=== PATIENT | female | born 1955 | race Caucasian/White ===

== ENCOUNTER → 2016-07-29 | Outpatient (CLI) | payer MEDICAID ==
--- NOTE | 2016-07-29 15:31 | US ---
EXAMINATION TYPE: US transvaginal DATE OF EXAM: 07/29/2016 COMPARISON: Prior ultrasound 04/16/2015. CLINICAL HISTORY: N83.20 Previous Ovarian Cyst. History of left ovarian cyst, tubal ligation. LMP: 2007 TECHNIQUE: Transvaginal (TV) pelvic ultrasound. Date of LMP: 04/2007 EXAM MEASUREMENTS: Uterus: 5.9 x3.1 x 4.8 cm Endometrial Stripe: .34 cm Right Ovary: 2.1 x 1.2 x 1.2 cm Left Ovary: 4.3 x 1.9 x 2.1 cm 1. Uterus: Retroverted Heterogenous in appearance. Nabothian cysts noted. 2. Endometrium: Small amount of fluid. 3. Right Ovary: Limited to overlying bowel. 4. Left Ovary: Cystic area noted = 2.4 x 1.8 x 2.4cm. 5. Bilateral Adnexa: wnl 6. Posterior cul-de-sac: wnl Left ovary there is redemonstration of 2.4 x 1.7 x 2.1 cm oval thin-walled cyst unchanged in size and appearance from prior exam. IMPRESSION: Stable 2.4 cm thin-walled cyst or cystic lesion left ovary, neoplasm though most likely b enign in postmenopausal female cannot be excluded. Continued annual ultrasound follow-up advised.
== END | disposition home or self-care (01) ==
LOC: RADUSWWP 14:50
PROVIDERS: ATTEND Obstetrics & Gynecology
DX: N83.202 Unspecified ovarian cyst, left side (principal)
CPT/HCPCS: 76830

== ENCOUNTER → 2017-03-08 | Outpatient (CLI) | payer MEDICAID ==
--- NOTE | 2017-03-08 17:57 | WWHP ---
[facility] - HISTORY AND PHYSICAL DATE OF DICTATION: 03/08/2017 CHIEF COMPLAINT: The patient is here for her routine gynecologic exam and mammogram. HISTORY OF PRESENT ILLNESS: This is a 61-year-old with an LMP of 2008. The patient is without gynecologic complaints. She has been followed for a benign-appearing left ovarian cyst after the menopause. This has been followed since approximately 2013. Her most recent ultrasound on 07/29/2016 showed a 2.4 cm benign-appearing left ovarian cyst. PAST MEDICAL HISTORY: 1. Chronic hypertension. 2. Elevated cholesterol. 3. Seasonal allergies. 4. Gastroesophageal reflux disease. MEDICATIONS: 1. Zyrtec p.r.n. 2. Aspirin 81 mg daily. 3. Losartan with hydrochlorothiazide 100/25 one daily. 4. Atorvastatin 40 mg daily. 5. Omeprazole 20 mg daily. ALLERGIES: NO KNOWN DRUG ALLERGIES. PAST SURGICAL HISTORY: 1. Colonoscopy in 2013. 2. Laparoscopy. 3. Tubal ligation. 4. Spinal fusion. 5. Knee surgery. 6. Cardiac catheterization in the past. 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 She has been followed for a postmenopausal left ovarian cyst, as above. SOCIAL HISTORY: She denies tobacco and drug use and has about 6 alcohol-containing drinks per week. She has been since 2009; this is her second marriage. She retired in 2017. She has a [place] [facility] and will be purchasing a fifth wheel to travel with. FAMILY HISTORY: Father had heart valve disease and skin cancer. A grandfather had diabetes. REVIEW OF SYSTEMS: Weight has been stable. She denies respiratory, cardiac or GI problems. PHYSICAL EXAMINATION: Blood pressure 132/86, height 5 feet 5 inches, weight 204 pounds. BMI 34. Temperature 97.4, pulse 77. This is a well-developed, heavyset white female who is alert and oriented x3, in no acute distress. HEENT is within normal limits. NECK: Supple without mass or thyromegaly. CHEST AND LUNGS: Clear to auscultation. HEART: Regular rate and rhythm. Breasts are without mass or discharge. Axillary exam is negative for adenopathy, back negative for CVA tenderness. ABDOMEN: Soft, nontender, without palpable masses. PELVIC EXAMINATION: External genitalia reveal mild atrophy without lesions. Cervix and vagina reveal mild atrophy without lesions. There is no evidence of prolapse. The uterus is mid position, non-gravid size and non-tender. There are no palpable adnexal masses or tenderness. Rectovaginal exam is negative for mass or tenderness and is negative for occult blood. Extremities are non-tender. IMPRESSION: 1. Tyuzx-hze-[id number]-old menopausal female with normal gynecologic exam. 2. History of a benign-appearing postmenopausal left ovarian cyst which last measured approximately 2.4 cm. PLAN: 1. Pap smear was deferred since she had a normal one less than 2 years ago. 2. Self breast examination was discussed. 3. Mammogram will be done today. 4. She is to repeat her pelvic ultrasound in July 2017, and this will be a vaginal probe ultrasound. An order slip was given to the patient for this. 5. Osteoporosis prevention was discussed. 6. She will return in one year. MMODL / IJN: [id number] /
--- NOTE | 2017-03-09 10:53 | MM ---
Reason for exam: screening (asymptomatic). Last mammogram was performed 1 year and 1 month ago. History: Patient is postmenopausal. Benign stereotactic core biopsy of the left breast, September 07, 1999. Physical Findings: A clinical breast exam by your physician is recommended on an annual basis and results should be correlated with mammographic findings. MG 3D Screening Mammo W/Cad Bilateral CC and MLO view(s) were taken. Prior study comparison: February 03, 2016, bilateral MG 3d screening mammo w/cad. January 13, 2015, bilateral MG 3d screening mammo w/cad. There are scattered fibroglandular densities. No suspicious abnormality. No significant changes when compared with prior studies. ASSESSMENT: Negative, BI-RAD 1 RECOMMENDATION: Routine screening mammogram of both breasts in 1 year.
== END | disposition home or self-care (01) ==
LOC: WWCWWP 13:09
PROVIDERS: ATTEND Obstetrics & Gynecology
DX: Z12.31 Encounter for screening mammogram for malignant neoplasm of breast (principal)
CPT/HCPCS: 77063; 77067

== ENCOUNTER → 2017-09-30 | Outpatient (CLI) | payer MEDICAID ==
--- NOTE | 2017-09-30 10:48 | US ---
EXAMINATION TYPE: US pelvic complete DATE OF EXAM: 09/30/2017 COMPARISON: 08/07 US CLINICAL HISTORY: N83.20 OVARIAN CYST. TECHNIQUE: Transvaginal (TV). Transvaginal sonographic images of the pelvis were acquired. EXAM MEASUREMENTS: Uterus: 5.2 x 2.8 x 4.0 cm Endometrial Stripe: 0.2 cm Right Ovary: 2.2 x 1.0 x 1.9 cm Left Ovary: 4.7 x 2.6 x 3.4 cm 1. Uterus: Retroverted diffusely heterogeneous, Nabothian cyst 2. Endometrium: wnl 3. Right Ovary: wnl 4. Left Ovary: seen with a 3.1 x 2.4 x 2.8 cm anechoic cystic lesion. This measured 2.4 x 1.7 x 2.1 cm on the prior exam of 07/29/2016. In comparison to the exam of 12/06/2014 this previously measured 2. 3 x 1.5 x 2.0 cm. On today's examination there are no appreciable internal septations or mural nodule s. No internal vascular flow is seen. 5. Bilateral Adnexa: wnl 6. Posterior cul-de-sac: no free fluid seen IMPRESSION: Interval growth of the left adnexal cystic lesion in comparison to the prior exams of 07/29 and 12/06/2014 changing from a maximum dimension of 2.3 to 3.1 cm. Given interval growth surgic al consultation with gynecology/oncology could be considered although this most commonly represents a simple cyst or benign mucinous/serous cystoadenoma with consideration for mucinous/serous cystadenoc arcinoma less likely given the lack of internal complexity.
--- NOTE | 2017-10-04 11:26 | P.PN ---
Progress Note - Text Progress Note Date: 10/04/17 OUTPATIENT FOLLOW-UP NOTE TEST(S)/RESULTS: pelvic ultrasound done on 09/30/2017 shows a simple left ovarian cyst measuring 3.1 cm. METHOD OF NOTIFICATION: the patient was notified by phone. PATIENT COMMENTS: patient understands these results. She denies any symptoms related to this cyst. DIAGNOSIS: postmenopausal left simple ovarian cyst DISCUSSION: she has been followed for a simple left ovarian cyst since 2013 when it measured 2.0 cm. Her previous pelvic ultrasound done on 07/29/2016 showed a left ovarian cyst measuring 2.4 cm. PLAN: I have recommended a CA125 blood test. If this is normal we will plan on continuing conservative management and approval repeat the pelvic ultrasound in one year. If the Ca 125 blood test is elevated, consider referral for possible surgical management or repeating the pelvic ultrasound in a shorter time interval. The order for the blood test was mailed to the patient.
== END | disposition home or self-care (01) ==
LOC: RADUSWWP 09:30
PROVIDERS: ATTEND Obstetrics & Gynecology
DX: N85.8 Other specified noninflammatory disorders of uterus (principal)
CPT/HCPCS: 76830

== ENCOUNTER → 2017-10-10 | Outpatient (CLI) | payer MEDICAID | END | disposition home or self-care (01) | LOC: LABWHC1 09:05 | PROVIDERS: ATTEND Obstetrics & Gynecology | DX: N83.209 Unspecified ovarian cyst, unspecified side (principal); Z78.0 Asymptomatic menopausal state | CPT/HCPCS: 36415; 86304 ==

== ENCOUNTER → 2018-03-22 | Outpatient (CLI) | payer MEDICAID ==
[2018-03-22 11:14] VITALS: BP 143/99; PULSE 81; RESP 16; TEMP 98.1; BMI 34.4
--- NOTE | 2018-03-22 11:56 | P.HPOB ---
History of Present Illness H&P Date: 03/22/18 Chief Complaint: The patient is here for her routine gynecologic exam and mammogram. This is a 62-year-old G2 PII with LMP of 2008. The patient is without gynecologic complaints and denies any postmenopausal bleeding. She denies any pelvic or abdominal discomfort or bloating. She has been followed for a benign appearing left ovarian cyst after the menopause since 2013. Her most recent pelvic ultrasound on 09/30/2017 showing a 3.1 cm simple left ovarian cyst. CA125 was within normal limits on 10/10/2017. Review of Systems The patient has gained 3 pounds over the last year. She denies respiratory, cardiac, or G.I. problems. Past Medical History Past Medical History: Asthma, GERD/Reflux, Hyperlipidemia, Hypertension Additional Past Medical History / Comment(s): heart murmur. Seasonal allergies. 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 She has been followed for a benign appearing left ovarian cyst since 2013. History of Any Multi-Drug Resistant Organisms: None Reported Past Surgical History: Back Surgery, Heart Catheterization, Orthopedic Surgery ( Spinal fusion and knee surgery), Tubal Ligation Additional Past Surgical History / Comment(s): back surgery with fusion plate and screws in place, colon polyps with colonoscopy in 2013. Past Anesthesia/Blood Transfusion Reactions: No Reported Reaction Past Psychological History: No Psychological Hx Reported Smoking Status: Former smoker Past Alcohol Use History: Occasional (5 per week) Past Drug Use History: None Reported Additional History: She has been since 2009 and this is her 2nd marriage. She is retired. - Past Family History Father Family Medical History: Cancer Additional Family Medical History / Comment(s): Skin cancer and heart valve disease. Grandfather had diabetes. Medications and Allergies Home Medications Medication Instructions Recorded Confirmed Type Aspirin 81 mg PO DAILY 10/09/13 03/22/18 History Loratadine [Claritin] 10 mg PO DAILY 10/09/13 03/22/18 History Omeprazole [PriLOSEC] 20 mg PO AC-BRKFST 10/09/13 03/22/18 History Pravastatin Sodium [Pravachol] 40 mg PO HS 10/09/13 03/22/18 History Losartan/Hydrochlorothiazide 1 each PO DAILY 12/26/14 03/22/18 History [Losartan-Hctz 100-25 mg Tab] Allergies Allergy/AdvReac Type Severity Reaction Status Date / Time adhesive tape Allergy Itching Verified 03/22/18 10:32 Exam Vital Signs Temp Pulse Resp BP Pulse Ox 03/22/18 10:58 98.1 F 81 16 143/99 99 Height 5'5", weight 207 pounds, BMI 34. This is a well-developed well-nourished white female who is alert and oriented times 3 in no acute distress. HEENT: Within normal limits. NECK: Supple without mass or thyromegaly. CHEST AND LUNGS: Clear to auscultation. HEART: Regular rate and rhythm. BREASTS: Are without mass or discharge. AXILLARY EXAM: Negative for adenopathy. BACK: Negative for CVA tenderness. ABDOMEN: Soft, nontender, without palpable masses. PELVIC EXAM: Normal external genitalia with mild atrophy. Cervix and vagina appear normal mild atrophy. There is no unusual discharge. There is no evidence of prolapse. The uterus is midposition, nongravid size and nontender. There are no palpable adnexal masses or tenderness. RECTAL EXAM: rectovaginal exam is negative for mass or tenderness and is negative for occult blood. EXTREMITIES: Nontender. IMPRESSION: 1. 62-year-old menopausal female with normal gynecologic exam. 2. History of a benign appearing simple postmenopausal left ovarian cyst measuring 3.1 cm on 09/30/2017. Asymptomatic. The ovarian cyst has been followed since 2013. PLAN: 1. Pap smear was performed. 2. Self breast awareness was discussed with the patient. 3. Screening mammogram will be done today. 4. I have recommended repeating the pelvic ultrasound for the left ovarian cyst approximately one year after her last ultrasound. The patient has declined this for financial reasons and would like to do this approximately 6 months after the recommended time for financial reasons. She states she will call if she develops any abdominal or pelvic symptoms such as pressure or bloating. 5. Osteoporosis prevention was discussed. I have stressed the importance of adequate calcium, vitamin D and regular exercise. Recommended amounts of calcium and vitamin D were also discussed. She had a normal bone density test done on 01/13/2015. We will repeat this in approximately 2020. 6. She will look into doing another colonoscopy later this year since she was told to do this 5 years after her last one. 7. She will return in one year.
--- NOTE | 2018-03-24 09:12 | MM ---
Reason for exam: screening (asymptomatic). Last mammogram was performed 1 year ago. History: Patient is postmenopausal. Benign stereotactic core biopsy of the left breast, September 07, 1999. Physical Findings: A clinical breast exam by your physician is recommended on an annual basis and results should be correlated with mammographic findings. MG 3D Screening Mammo W/Cad Bilateral CC and MLO view(s) were taken. Prior study comparison: March 08, 2017, bilateral MG 3d screening mammo w/cad. February 03, 2016, bilateral MG 3d screening mammo w/cad. There are scattered fibroglandular densities. Previous mammotome biopsy in the left breast. No significant changes when compared with prior studies. ASSESSMENT: Negative, BI-RAD 1 RECOMMENDATION: Routine screening mammogram of both breasts in 1 year.
== END | disposition home or self-care (01) ==
LOC: WWCWWP 10:25
PROVIDERS: ATTEND Obstetrics & Gynecology
DX: Z12.31 Encounter for screening mammogram for malignant neoplasm of breast (principal)
CPT/HCPCS: 77063; 77067

== ENCOUNTER → 2019-04-17 | Outpatient (CLI) | payer MEDICAID, MEDICARE ==
[2019-04-17 14:08] VITALS: BP 136/85; PULSE 78; RESP 18; TEMP 97.7
--- NOTE | 2019-04-17 14:45 | P.HPOB ---
History of Present Illness H&P Date: 04/17/19 Chief Complaint: The patient is here for her routine gynecologic exam and ma mmogram. This is a 64-year-old with an LMP of 2007. The patient is without gynecologic complaints. She denies any postmenopausal bleeding. The patient has a history of a postmenopausal left ovarian simple cyst which measured 3.1 cm on 09/30/2017. The patient had refused the pelvic ultrasound in 2019, but is willing to do it this year. Review of Systems The patient has lost 7 pounds over the last year. She denies respiratory, cardiac and G.I. problems. She denies maltreatment or problems with falling. : she denies any significant problems with urinary leakage. Past Medical History Past Medical History: Asthma, GERD/Reflux, Hyperlipidemia, Hypertension Additional Past Medical History / Comment(s): heart murmur. Seasonal allergies. 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 She has been followed for a benign appearing left ovarian cyst since 2013. History of Any Multi-Drug Resistant Organisms: None Reported Past Surgical History: Back Surgery, Heart Catheterization, Orthopedic Surgery, Tubal Ligation Additional Past Surgical History / Comment(s): back surgery with fusion plate and screws in place, knee surgery, colon polyps with colonoscopy in 2013. Past Anesthesia/Blood Transfusion Reactions: No Reported Reaction Past Psychological History: No Psychological Hx Reported Smoking Status: Former smoker Past Alcohol Use History: Occasional (7 per week) Additional Past Alcohol Use History / Comment(s): Quit smoking in 2000. Past Drug Use History: None Reported Additional History: She has been since 2009 and this is her second marriage. She is retired. - Past Family History Father Family Medical History: Cancer Additional Family Medical History / Comment(s): Skin cancer and heart valve disease. Grandfather had diabetes. Medications and Allergies Home Medications Medication Instructions Recorded Confirmed Type Aspirin 81 mg PO DAILY 10/09/13 04/17/19 History Omeprazole [PriLOSEC] 20 mg PO AC-BRKFST 10/09/13 04/17/19 History Atorvastatin Calcium [Lipitor] 40 mg PO DAILY 04/17/19 04/17/19 History Calcium Carbonate/Vitamin D3 1 each PO DAILY 04/17/19 04/17/19 History [Caltrate 600 Plus D3 Tablet] Cetirizine HCl 10 mg PO DAILY 04/17/19 04/17/19 History Hydrochlorothiazide 12.5 mg PO DAILY 04/17/19 04/17/19 History Losartan [Cozaar] 50 mg PO BID 04/17/19 04/17/19 History Multivit with Calcium,Iron,Min 1 each PO DAILY 04/17/19 04/17/19 History [Women's Multivitamin] Allergies Allergy/AdvReac Type Severity Reaction Status Date / Time adhesive tape Allergy Itching Verified 03/22/18 10:32 Exam Vital Signs Temp Pulse Resp BP Pulse Ox 04/17/19 14:02 97.7 F 78 18 136/85 97 Intake and Output 04/16/19 04/17/19 04/17/19 22:59 06:59 14:59 Other: Weight 90.718 kg Height 5 feet 4 inches, weight 200 pounds, BMI 34.3. This is a well-developed well-nourished white female who is alert and oriented times 3 in no acute distress. HEENT: Within normal limits. NECK: Supple without mass or thyromegaly. CHEST AND LUNGS: Clear to auscultation. HEART: Regular rate and rhythm. BREASTS: Are without mass or discharge. AXILLARY EXAM: Negative for adenopathy. BACK: Negative for CVA tenderness. ABDOMEN: Soft, nontender, without palpable masses. PELVIC EXAM: Normal external genitalia with mild atrophy. Cervix and vagina appear normal of mild atrophy. There is no unusual discharge. There is no evidence of prolapse. The uterus is midposition, nongravid size and nontender. There are no palpable adnexal masses or tenderness. RECTAL EXAM: Rectovaginal exam is negative for mass or tenderness and is negative for occult blood. EXTREMITIES: Nontender. IMPRESSION: 1. 64-year-old menopausal female with normal gynecologic exam. 2. History of a benign-appearing simple postmenopausal left ovarian cyst measuring 3.1 cm in 2018. This is asymptomatic and this cyst has been followed since 2014. There are no significant physical findings on exam today. PLAN: 1. Pap smear was deferred since she had a normal one on 03/02/2018. 2. Self breast awareness was discussed with the patient. 3. Screening mammogram will be done today. 4. Osteoporosis prevention was discussed. I have stressed the importance of adequate calcium, vitamin D and regular exercise. Recommended amounts of calcium and vitamin D were also discussed. Her last bone density test was normal on 01/13/2015. We will plan on repeating this next year. 5. She states she is due for her colonoscopy and her last one was about 5 years ago. She will be looking into doing this. 6. She did get a flu shot this past fall. 7. Pelvic ultrasound will be done to reevaluate the left ovarian cyst. The order slip was given to the patient for this. 8. She was advised to return in one year for her annual well woman exam.
--- NOTE | 2019-04-19 15:11 | MM ---
Reason for exam: screening (asymptomatic). Last mammogram was performed 1 year and 1 month ago. History: Patient is postmenopausal. Benign stereotactic core biopsy of the left breast, September 07, 1999. Physical Findings: A clinical breast exam by your physician is recommended on an annual basis and results should be correlated with mammographic findings. MG 3D Screening Mammo W/Cad Bilateral CC and MLO view(s) were taken. Prior study comparison: March 22, 2018, bilateral MG 3d screening mammo w/cad. March 08, 2017, bilateral MG 3d screening mammo w/cad. There are scattered fibroglandular densities. Focal asymmetry left upper outer quadrant anterior. This finding is changed when compared with previous exams. ASSESSMENT: Incomplete: need additional imaging evaluation, BI-RAD 0 RECOMMENDATION: Special view mammogram of the left breast. If lesion persists on supplemental views, image directed ultrasound is recommended. [facility] will attempt to contact patient to return for supplemental views and ultrasound if indicated.
== END | disposition home or self-care (01) ==
LOC: WWCWWP 13:44
PROVIDERS: ATTEND Obstetrics & Gynecology
DX: Z12.31 Encounter for screening mammogram for malignant neoplasm of breast (principal)
CPT/HCPCS: 77063; 77067

== ENCOUNTER → 2019-04-20 | Outpatient (CLI) | payer MEDICARE ==
--- NOTE | 2019-04-20 10:40 | US ---
EXAMINATION TYPE: US pelvic complete DATE OF EXAM: 04/20/2019 COMPARISON: 09/30/2017 and 07/29/2016 CLINICAL HISTORY: N83.0 Follicular cyst of ovary. known left ovarian cyst since at least 2014 TECHNIQUE: TA. Transabdominal sonographic images of the pelvis were acquired. No TV today because I was able to see cyst with TA and patient was thrilled to not have to have TV. Date of LMP: 10+yrs ago EXAM MEASUREMENTS: Uterus: 6.7 x 6.1 x 4.1 cm Endometrial Stripe: not seen Right Ovary: 2.1 x 1.4 x 0.7 cm Left Ovary: 4.1 x 3.5 x 2.8 cm 1. Uterus: Retroverted wnl 2. Endometrium: unable to discern with TA assessment today 3. Right Ovary: wnl 4. Left Ovary: There is a known left ovarian cyst now measuring 2.8 x 2.3 x 2.7 cm and previously me asuring 3.1 x 2.4 x 2.8 cm on the exam of 09/30/2017 and 2.4 x 1.7 x 2.1 cm on the exam of 07/29/2016. T his appears anechoic with no mural nodule or septation seen. 5. Bilateral Adnexa: wnl 6. Posterior cul-de-sac: wnl IMPRESSION: 1. No interval growth of the left cystic ovarian lesion in comparison to the ultrasound of 09/30/2017 however interval growth is seen in comparison to exam of 07/29/2016 and continued surveillance is recom mended in this postmenopausal female. No new internal complexity. 2. Endometrium is unable to be measured due to poor visualization.
== END | disposition home or self-care (01) ==
LOC: RADUSWWP 10:06
PROVIDERS: ATTEND Obstetrics & Gynecology
DX: N83.02 Follicular cyst of left ovary (principal)
CPT/HCPCS: 76856

== ENCOUNTER → 2019-09-11 | Outpatient (CLI) | payer MEDICARE ==
[2019-09-11 08:52] LABS: HCT 40.4 % (34.0-46.0); HGB 13.5 gm/dL (11.4-16.0); MCH 32.2 pg (25.0-35.0); MCHC 33.4 g/dL (31.0-37.0); MCV 96.5 fL (80.0-100.0); Mean Platelet Volume 7.8; Platelet Count 250 k/uL (150-450); RBC 4.19 m/uL (3.80-5.40); RDW 12.3 % (11.5-15.5); WBC 5.1 k/uL (3.8-10.6)
[2019-09-11 16:38] LABS: African American GFR (CKD) 77.8 (60.0-200.0); Albumin 4.5 g/dL (3.80-4.90); Albumin/Globulin Ratio 2.05 (1.60-3.17); Anion Gap 7.5 mmol/L (4.00-12.00); BUN/Creat Ratio 14.44 Ratio (12.00-20.00); Calcium 9.6 mg/dL (8.7-10.3); Carbon Dioxide 29.5 mmol/L (21.6-31.8); Chol/HDL Ratio 2.95; Globulin 2.2 g/dL (1.6-3.3); LDL Cholesterol,Calculated 91.2 mg/dL (0.0-131.0); Non-African American GFR(CKD) 67.1 (60.0-200.0); Total Bilirubin 0.5 mg/dL (0.2-1.2); Total Protein 6.7 g/dL (6.2-8.2); VLDL Calculation 29.8 mg/dL (5.00-40.00)
== END | disposition home or self-care (01) ==
LOC: LABWHC1 07:50
PROVIDERS: ATTEND Family Medicine
DX: E78.5 Hyperlipidemia, unspecified (principal); I10 Essential (primary) hypertension; E55.9 Vitamin D deficiency, unspecified
CPT/HCPCS: 36415; 80053; 80061; 82306; 85027

== ENCOUNTER → 2020-03-25 | Outpatient (CLI) | payer MEDICARE ==
[2020-03-25 14:53] LABS: HCT 40.1 % (37.2-46.3); HGB 13.2 g/dL (12.0-15.0); MCH 31.3 pg (27.0-32.0); MCHC 32.9 g/dL (32.0-37.0); Mean Platelet Volume 10.8 fL (9.5-12.2); Platelet Count 277 X 10*3/uL (140-440); RBC 4.22 X 10*6/uL (4.10-5.20); RDW 12.4 % (11.5-14.5); WBC 5.85 X 10*3/uL (4.50-10.00)
[2020-03-25 15:24] LABS: African American GFR (CKD) 77.8 (60.0-200.0); Albumin 4.6 g/dL (3.80-4.90); Albumin/Globulin Ratio 2.56 (1.60-3.17); Anion Gap 8.2 mmol/L (4.00-12.00); Calcium 9.4 mg/dL (8.7-10.3); Carbon Dioxide 28.8 mmol/L (21.6-31.8); Chol/HDL Ratio 3.04; Globulin 1.8 g/dL (1.6-3.3); LDL Cholesterol,Calculated 84.2 mg/dL (0.0-131.0); Non-African American GFR(CKD) 67.1 (60.0-200.0); Total Bilirubin 0.5 mg/dL (0.2-1.2); Total Protein 6.4 g/dL (6.2-8.2); VLDL Calculation 31.8 mg/dL (5.00-40.00)
== END | disposition home or self-care (01) ==
LOC: LABWHC1 08:51
PROVIDERS: ATTEND Family Medicine
DX: I10 Essential (primary) hypertension (principal); K21.9 Gastro-esophageal reflux disease without esophagitis; R94.5 Abnormal results of liver function studies
CPT/HCPCS: 36415; 80053; 80061; 85027

== ENCOUNTER 2020-06-18 07:08 | Day surgery (SDC) | payer MEDICARE ==
[2020-06-16 12:04] VITALS: BMI 33.3
[~2020-06-18 07:08] MED LIST: LIDOCAINE 1% (10MG/ML) FOR IV START INTRADERMA PRN
[2020-06-18] MEDS: LACTATED RINGERS 1,000 ML IV SCH ×2 (07:28→07:30)
[2020-06-18 07:35] VITALS: RESP 16; TEMP 96.4
[2020-06-18] MEDS ORDERED: LIDOCAINE 1% INJ 10MG/ML (20 ML MDV) ONE (08:23)
[2020-06-18] MEDS ORDERED: PROPOFOL 10 MG/ML 20 ML VIAL IV ONE (08:23)
--- NOTE | 2020-06-18 08:44 | P.PCN ---
Date of Procedure: 06/18/20 Procedure(s) Performed: BRIEF HISTORY: Patient is a 65-year-old pleasant white female scheduled for an elective colonoscopy as a part of surveillance of her colon polyps. She had a colonoscopy in November 2019 and was noted to have a 1.5 cm residual polyp in the hepatic flexure that was removed by snare polypectomy by hot biopsy. Biopsy revealed tubular adenoma. She is scheduled for repeat surveillance colonoscopy today. The PROCEDURE PERFORMED: Colonoscopy snare polypectomy. PREOPERATIVE DIAGNOSIS: Follow-up colon polyps. IV sedation per Anesthesia. PROCEDURE: After informed consent was obtained, the patient, was brought into the endoscopy unit. IV sedation was administered by Anesthesia under continuous monitoring. Digital rectal examination was normal. Initially the Olympus CF-160 flexible video colonoscope was then inserted in the rectum, gradually advanced into the cecum without any difficulty. Careful examination was performed as the scope was gradually being withdrawn. Ileocecal valve and the appendiceal orifice were visualized and appeared normal. Prep was excellent. Mucosa of the cecum, ascending colon, appeared normal. There was no residual polyp noted in the hepatic flexure. Mucosa of the transverse colon, descending colon, appeared normal. The sigmoid colon there was a 5 mm polyp that was removed by snare polypectomy. Scattered sigmoid diverticulosis seen. Rest of the sigmoid colon, and rectum appeared normal. Retroflexion was performed in the rectum and no lesions were seen. The patient tolerated the procedure well. IMPRESSION: No residual polyp noted in the hepatic flexure 5 mm scattered sigmoid diverticulosis. sigmoid colon polyp status post polypectomy RECOMMENDATIONS: Findings of this examination were discussed with the patient as well as a family. She'll follow with the biopsy results. She was advised to have a repeat surveillance colonoscopy in 3 years..
[2020-06-18 09:21] VITALS: BP 125/79; PULSE 73
== END 2020-06-18 09:38 | disposition home or self-care (01) ==
LOC: ORWHC2ENDO 07:08
PROVIDERS: ATTEND Internal Medicine Gastroenterology
DX: Z12.11 Encounter for screening for malignant neoplasm of colon (principal); Z86.010 Personal history of colon polyps; Z79.899 Other long term (current) drug therapy; I10 Essential (primary) hypertension; E78.5 Hyperlipidemia, unspecified; Z87.891 Personal history of nicotine dependence; K21.9 Gastro-esophageal reflux disease without esophagitis; Z91.09 Other allergy status, other than to drugs and biological substances
CPT/HCPCS: 45385; J2001; J2704; 88305

== ENCOUNTER → 2020-07-01 | Outpatient (CLI) | payer MEDICARE ==
[2020-07-01 11:48] VITALS: BP 128/88; PULSE 84; RESP 18; TEMP 98.6
--- NOTE | 2020-07-01 12:49 | BD ---
EXAMINATION TYPE: Axial Bone Density DATE OF EXAM: 07/01/2020 COMPARISON: 01.13.2015 CLINICAL HISTORY: 65 YR OLD FEMALE.....ICD-10 CODE: Z78.0 POST MENOPAUSAL Height: 64.3 Weight: 200 FRAX RISK QUESTIONS: NOTHING TO NOTE HERE RISK FACTORS HISTORY OF: Surgery to Spine LAMINECTOMY AND FUSION TO L5 S1, 1997 Postmenopausal woman: YES, AT ABOUT AGE 52 Hyperparathyroidism: NO Adrenal Insufficiency: NO MEDICATIONS: Additional Medications: BP MEDS, REFLUX MEDS, STATIN FOR CHOLESTEROL, MULTI VITAMIN Additional History: HYPERTENSION, REFLUX, CHOLESTEROL, OSTEOARTHRITIS, EXAM MEASUREMENTS: Bone mineral densitometry was performed using the [email or web address] System. Bone mineral density about the R hip (g/cm2): 1.168 Bone mineral density about the L hip (g/cm2): 1.308 T Score values are as follows: -----R Neck: 0.2 -----L Neck: 0.6 -----R Total: 1.3 -----L Total: 2.4 Bone mineral density has: Increased 0.2% since study of: 01.13.2015 FRAX%s: THERE IS A 10.3% CHANCE FOR A MAJOR OSTEOPOROTIC FX AND A 0.3% FOR HIP......PROBABILITY F OR FX IN 10 YRS TIME Bone mineral density about the R Wrist (g/cm2): 0.658 T Score values are as follows: -----Dist. R+U: 1.4 -----Prox. R+U: -0.4 -----Radius total: -0.1 Bone mineral density FIRST SCAN OF PTS WRIST.... IMPRESSION: Normal (Values between +1 and -1 indicate normal bone mass). Consider repeating this study in 5 year s or sooner if there is some new clinical indication. NOTE: T-SCORE=SD OF THE YOUNG ADULT MEAN.
--- NOTE | 2020-07-01 13:27 | P.HPOB ---
History of Present Illness H&P Date: 07/01/20 Chief Complaint: The patient is here for her routine gynecologic exam and ma mmogram. This is a 65-year-old with an LMP of 2007. The patient is without gynecologic complaints and denies any postmenopausal bleeding. Review of Systems Weight has been stable. She denies respiratory, cardiac and G.I. problems. She denies maltreatment or problems with falling. : she denies any significant problems with urinary leakage. Past Medical History Past Medical History: GERD/Reflux, Hyperlipidemia, Hypertension Additional Past Medical History / Comment(s): heart murmur. Seasonal allergies, hx of colon polyps. 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 She has had a benign-appearing left ovarian cyst since 2013. History of Any Multi-Drug Resistant Organisms: None Reported Past Surgical History: Back Surgery, Heart Catheterization, Orthopedic Surgery, Tubal Ligation Additional Past Surgical History / Comment(s): back surgery with fusion plate and screws in place, knee surgery, colon polyps with colonoscopy in 2020(next after 3yr), marker left breast. Past Anesthesia/Blood Transfusion Reactions: No Reported Reaction, Motion Sickness Past Psychological History: No Psychological Hx Reported Smoking Status: Former smoker Past Alcohol Use History: Occasional (6 per week) Additional Past Alcohol Use History / Comment(s): Quit smoking in 2000., smoked 3/4 ppd, started smoking age 15. Past Drug Use History: None Reported Additional History: She has been since 2009 and this is her second marriage. She is retired. - Past Family History Father Family Medical History: Cancer Additional Family Medical History / Comment(s): Skin cancer and prostate cancer., heart valve disease. Medications and Allergies Home Medications Medication Instructions Recorded Confirmed Type Aspirin 81 mg PO DAILY 10/09/13 07/01/20 History Omeprazole [PriLOSEC] 20 mg PO AC-BRKFST 10/09/13 07/01/20 History Atorvastatin Calcium [Lipitor] 40 mg PO HS 04/17/19 07/01/20 History Cetirizine HCl 10 mg PO DAILY 04/17/19 07/01/20 History Hydrochlorothiazide 12.5 mg PO DAILY 04/17/19 07/01/20 History [hydroCHLOROthiazide] Multivit with Calcium,Iron,Min 1 each PO DAILY 04/17/19 07/01/20 History [Women's Multivitamin] Ibuprofen 400 mg PO DIRECTED PRN 06/16/20 07/01/20 History Losartan Potassium 100 mg PO DAILY 06/16/20 07/01/20 History Fluticasone Nasal [place] [Flonase 1 spray EA NOSTRIL DAILY 07/01/20 07/01/20 History Nasal [place]] Allergies Allergy/AdvReac Type Severity Reaction Status Date / Time adhesive tape Allergy Rash/Hives Verified 07/01/20 10:42 Exam Vital Signs Temp Pulse Resp BP Pulse Ox 07/01/20 10:24 98.6 F 84 18 128/88 96 Intake and Output 06/30/20 07/01/20 07/01/20 22:59 06:59 14:59 Other: Weight 91.626 kg Height 5 feet 4-1/2 inches, weight 202 pounds, BMI 34.1. This is a well-developed well-nourished white female who is alert and oriented times 3 in no acute distress. HEENT: Within normal limits. NECK: Supple without mass or thyromegaly. CHEST AND LUNGS: Clear to auscultation. HEART: Regular rate and rhythm. BREASTS: Are without mass or discharge. AXILLARY EXAM: Negative for adenopathy. BACK: Negative for CVA tenderness. ABDOMEN: Soft, nontender, without palpable masses. PELVIC EXAM: Normal external genitalia with mild atrophy. Cervix and vagina appear normal with mild atrophy. There is no unusual discharge. There is no evidence of prolapse. The uterus is midposition, nongravid size and nontender. There are no palpable adnexal masses or tenderness. RECTAL EXAM: Rectovaginal exam is negative for mass or tenderness and is negative for occult blood. EXTREMITIES: Nontender. IMPRESSION: 1. 65-year-old menopausal female with normal gynecologic exam. 2. History of asymptomatic 2.8 cm left ovarian simple cyst which has been followed conservatively since 2014. PLAN: 1. Pap smear was performed. If this one is negative, we will consider discontinuing Pap smears in the future. 2. Self breast awareness was discussed with the patient. 3. Screening mammogram was done today. 4. Osteoporosis prevention was discussed. I have stressed the importance of adequate calcium, vitamin D and regular exercise. Recommended amounts of calcium and vitamin D were also discussed. Bone density testing was done today and was normal. We will plan on repeating this again in approximately 6 years. 5. She did receive her flu shot last fall and has completed her Covid vaccination series. 6. The patient was advised to return in 1-2 years for her well woman examination.
--- NOTE | 2020-07-02 13:31 | MM ---
Reason for exam: screening (asymptomatic). Last mammogram was performed 1 year and 2 months ago. History: Patient is postmenopausal. Benign stereotactic core biopsy of the left breast, September 07, 1999. Physical Findings: A clinical breast exam by your physician is recommended on an annual basis and results should be correlated with mammographic findings. MG 3D Screening Mammo W/Cad Bilateral CC and MLO view(s) were taken. Prior study comparison: May 01, 2019, left breast MG 3d work up w/cad LT. April 17, 2019, bilateral MG 3d screening mammo w/cad. There are scattered fibroglandular densities. There is no discrete abnormality. No significant changes when compared with prior studies. ASSESSMENT: Negative, BI-RAD 1 RECOMMENDATION: Routine screening mammogram of both breasts in 1 year.
== END ==
LOC: WWCWWP 10:24
PROVIDERS: ATTEND Obstetrics & Gynecology
DX: Z01.419 Encounter for gynecological examination (general) (routine) without abnormal findings (principal); K21.9 Gastro-esophageal reflux disease without esophagitis; E78.5 Hyperlipidemia, unspecified; I10 Essential (primary) hypertension; Z87.891 Personal history of nicotine dependence; Z12.31 Encounter for screening mammogram for malignant neoplasm of breast; Z78.0 Asymptomatic menopausal state
CPT/HCPCS: 77063; 77067; 77080

== ENCOUNTER → 2020-08-01 | Outpatient (CLI) | payer MEDICARE ==
--- NOTE | 2020-08-01 15:09 | US ---
EXAMINATION TYPE: US pelvic complete DATE OF EXAM: 08/01/2020 COMPARISON: 04/20/2019 CLINICAL HISTORY: 65-year-old female N83.0 LT OVARIAN CYST. History of left ovarian cyst, 2, para 2, history of tubal ligation TECHNIQUE: Transabdominal sonographic images of the pelvis were acquired. Date of LMP: 2007 FINDINGS: EXAM MEASUREMENTS: Uterus: 5.7 x 4.7 x 3.5 cm Endometrial Stripe: 0.4 cm Right Ovary: 2.0 x 0.9 x 1.6 cm for a volume of 1.6 mL. Left Ovary: 4.5 x 3.2 x 3.6 cm for a volume of 27.3 mL. 1. Uterus: retroverted 2. Endometrium: appears wnl 3. Right Ovary: wnl 4. Left Ovary: 2.8 x 1.7 x 2.4cm cyst (versus 2.8 x 2.7 x 2.3 cm on 04/20/2019) 5. Bilateral Adnexa: wnl 6. Posterior cul-de-sac: wnl IMPRESSION: Redemonstrated 2.8 cm left ovarian cyst. Continued annual surveillance ultrasound can be performed in a postmenopausal female with a cyst of this size.
--- NOTE | 2020-08-05 13:50 | P.PN ---
Progress Note - Text Progress Note Date: 08/05/20 OUTPATIENT FOLLOW-UP NOTE TEST(S)/RESULTS: Pelvic ultrasound done on 08/01/2020 shows a 2.8 cm left ovarian cyst which is unchanged from last year's ultrasound. Annual surveillance ultrasound is recommended. METHOD OF NOTIFICATION: The patient was notified by phone. PATIENT COMMENTS: DIAGNOSIS: Stable 2.8 cm left ovarian cyst in a postmenopausal woman. DISCUSSION: This cyst has been followed conservatively for several years. She was instructed to call if she has any unusual abdominal or pelvic symptoms. PLAN: She was advised to return in one year for her annual well woman exam. We will plan on repeating the pelvic ultrasound in one year.
== END | disposition home or self-care (01) ==
LOC: RADUSWWP 10:19
PROVIDERS: ATTEND Obstetrics & Gynecology
DX: N83.202 Unspecified ovarian cyst, left side (principal)
CPT/HCPCS: 76856

== ENCOUNTER → 2020-09-11 | Outpatient (CLI) | payer MEDICARE ==
[2020-09-11 12:02] LABS: HCT 42.7 % (37.2-46.3); HGB 14.1 g/dL (12.0-15.0); MCV 96.8 fL (80.0-97.0); Mean Platelet Volume 10.3 fL (9.5-12.2); Platelet Count 276 X 10*3/uL (140-440); RBC 4.41 X 10*6/uL (4.10-5.20); RDW 12.7 % (11.5-14.5); WBC 7.95 X 10*3/uL (4.50-10.00)
--- NOTE | 2020-09-11 12:12 | XR ---
Lumbar spine HISTORY: L4 radicular pain, right-sided low back pain 3 views the lumbar spine, no comparisons Posterior lumbar fusion is present at L5-S1, there is associated loss of disc height, multilevel spon dylosis is noted. Loss of disc height also present L4-5, is anterolisthesis grade 1 L4-5. Sclerosis i s present posterior elements of the lumbar spine compatible with facet arthropathy. Lumbar vertebral bodies show preserved height, bone mineralization may be slightly reduced. IMPRESSION: Degenerative disc disease, facet arthropathy, postop changes, spondylolisthesis, possible osteopenia.
[2020-09-11 14:02] LABS: Albumin 4.7 g/dL (3.80-4.90); Albumin/Globulin Ratio 1.96 (1.60-3.17); Anion Gap 11.7 mmol/L (4.00-12.00); Calcium 9.4 mg/dL (8.7-10.3); Carbon Dioxide 29.3 mmol/L (21.6-31.8); Chol/HDL Ratio 2.65; Globulin 2.4 g/dL (1.6-3.3); Non-African American GFR(CKD) 58.7 (60.0-200.0); Potassium 4.2 mmol/L (3.5-5.5); Total Bilirubin 0.5 mg/dL (0.3-1.2); Total Protein 7.1 g/dL (6.2-8.2)
[2020-09-11 16:08] LABS: Hemoglobin A1C 5.8 % (4.0-6.0)
== END | disposition home or self-care (01) ==
LOC: LABWHC1 07:35
PROVIDERS: ATTEND Family Medicine
DX: Z00.00 Encounter for general adult medical examination without abnormal findings (principal); M43.16 Spondylolisthesis, lumbar region; M51.16 Intervertebral disc disorders with radiculopathy, lumbar region; M47.26 Other spondylosis with radiculopathy, lumbar region
CPT/HCPCS: 36415; 72100; 80053; 80061; 83036; 85027

== ENCOUNTER → 2020-11-12 | Outpatient (CLI) | payer MEDICARE ==
--- NOTE | 2020-11-14 07:28 | MR ---
EXAMINATION TYPE: MR lumbar spine wo/w con DATE OF EXAM: 11/12/2020 COMPARISON: Lumbar spine x-ray September 11, 2020 HISTORY: Spinal Stenosis, low back pain into rt side TECHNIQUE: Multiplanar, multisequence images of the lumbar spine is performed without and with IV contrast, util izing 9 mL intravenous Gadavist FINDINGS: Sagittal images of the lumbar spine show vertebral body heights to appear satisfactory. Sig nificant susceptibility artifact from posterior surgical hardware L5-S1 level. Exaggerated curvature at this level with grade 1 anterolisthesis L4 on L5 is redemonstrated. Multilevel disc desiccation. Moderate to severe disc space narrowing L5-S1 level is redemonstrated. The conus medullaris is normal in position and signal ending at L1 level. The bone marrow signal intensity is within normal limits above surgical levels. No abnormal postcontrast enhancement is seen. Axial images show T12-L1 and L1-L2 levels to appear within normal limits. Axial images at L2-L3 show mild facet arthropathy bilaterally. Spinal canal is preserved. Patent bila teral neural foramina. Axial images at L3-L4 level show mild facet arthropathy and ligamentum flavum hypertrophy bilaterally producing left posterior lateral thecal sac. There is mild broad-based posterior disc protrusion mil dly facing anterior thecal sac. Mild bilateral anterior inferior neural foraminal narrowing is seen. Axial images at the L4-L5 level show significant susceptibility artifact making evaluation suboptimal . There is suggestion of more prominent disc herniation at this level on sagittal images 8 through 10 . Neuroforamina remain patent on sagittal images. Axial images at the L5-S1 level are nondiagnostic. Sagittal images also essentially nondiagnostic due to extensive susceptibility artifact. Paraspinal muscle bulk is preserved. IMPRESSION: Suboptimal study due to susceptibility artifact. Largest disc herniation is felt present L4-L5 level but cannot be accurately characterized.
== END | disposition home or self-care (01) ==
LOC: RADMRIMAIN 16:33
PROVIDERS: ATTEND Neurological Surgery
DX: M51.26 Other intervertebral disc displacement, lumbar region (principal)
CPT/HCPCS: 72158; A9585

== ENCOUNTER → 2021-01-07 | Outpatient (CLI) | payer MEDICARE ==
[2021-01-07 21:37] LABS: HCT 41.2 % (37.2-46.3); HGB 13.5 g/dL (12.0-15.0); MCH 31.8 pg (27.0-32.0); MCHC 32.8 g/dL (32.0-37.0); MCV 96.9 fL (80.0-97.0); Mean Platelet Volume 10.5 fL (9.5-12.2); Platelet Count 301 X 10*3/uL (140-440); RBC 4.25 X 10*6/uL (4.10-5.20); RDW 11.9 % (11.5-14.5); WBC 6.01 X 10*3/uL (4.50-10.00)
[2021-01-08 00:33] LABS: African American GFR (CKD) 77.2 (60.0-200.0); Albumin 4.7 g/dL (3.8-4.9); Albumin/Globulin Ratio 1.96 (1.60-3.17); Anion Gap 16.3 mmol/L (4.00-12.00); BUN/Creat Ratio 10.33 Ratio (12.00-20.00); Blood Urea Nitrogen 9.3 mg/dL (9.0-27.0); Calcium 10.2 mg/dL (8.7-10.3); Carbon Dioxide 23.7 mmol/L (21.6-31.8); Globulin 2.4 g/dL (1.6-3.3); Non-African American GFR(CKD) 66.6 (60.0-200.0); Potassium 4.1 mmol/L (3.5-5.5); Total Bilirubin 0.4 mg/dL (0.30-1.20); Total Protein 7.1 g/dL (6.2-8.2)
== END | disposition home or self-care (01) ==
LOC: LABWHC1 10:39
PROVIDERS: ATTEND Family Medicine
DX: Z01.812 Encounter for preprocedural laboratory examination (principal); M43.15 Spondylolisthesis, thoracolumbar region; M43.17 Spondylolisthesis, lumbosacral region
CPT/HCPCS: 36415; 80053; 85027; 86850; 86900; 86901

== ENCOUNTER → 2021-06-24 | Outpatient (CLI) | payer MEDICARE ==
--- NOTE | 2021-06-24 14:54 | XR ---
EXAMINATION TYPE: XR ankle complete LT DATE OF EXAM: 06/24/2021 COMPARISON: NONE HISTORY: Pain FINDINGS: Three views of the ankle demonstrate the ankle mortise to be intact and symmetric. The joint spaces are preserved. The osseous structures are intact. Large plantar calcaneal spur. IMPRESSION: 1. Large plantar calcaneal spur. 2. Pes planus deformity.
== END | disposition home or self-care (01) ==
LOC: RADXRMAIN 14:20
PROVIDERS: ATTEND Family Medicine
DX: M77.32 Calcaneal spur, left foot (principal); M21.42 Flat foot [pes planus] (acquired), left foot

== ENCOUNTER → 2021-08-11 | Outpatient (CLI) | payer MEDICARE ==
[2021-08-11 09:25] VITALS: BP 154/88; PULSE 75; RESP 17; TEMP 98.5
--- NOTE | 2021-08-11 10:09 | P.HPOB ---
History of Present Illness H&P Date: 08/11/21 Chief Complaint: The patient is here for her routine gynecologic exam and ma mmogram. This is a 66-year-old with an LMP of 2007. The patient is without gynecologic complaints. She does have a history of a benign-appearing left ovarian cyst by ultrasound and this has been followed by yearly pelvic ultrasounds for the last several years. The last ultrasound done on 08/01/2021 showed a left simple ovarian cyst measuring 2.8 cm. This has been stable. Review of Systems She has gained about 5 pounds over the past year. She denies respiratory or cardiac problems. GI: Occasional constipation and occasional abdominal bloating after eating. Past Medical History Past Medical History: GERD/Reflux, Hyperlipidemia, Hypertension Additional Past Medical History / Comment(s): heart murmur. Seasonal allergies. left ovarian cyst ., hx of colon polyps. 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 Benign appearing left ovarian cyst since 2013. History of Any Multi-Drug Resistant Organisms: None Reported Past Surgical History: Back Surgery, Heart Catheterization, Orthopedic Surgery, Tubal Ligation Additional Past Surgical History / Comment(s): back surgery with fusion plate and screws in place, knee surgery, colon polyps with colonoscopy in 2013 and 2019., marker left breast., ruptured ovarian cyst, L4-S1 BACK SURGERY 2020 Past Anesthesia/Blood Transfusion Reactions: No Reported Reaction, Motion Sickness Past Psychological History: No Psychological Hx Reported Smoking Status: Former smoker Past Alcohol Use History: Occasional (6 per week) Additional Past Alcohol Use History / Comment(s): Quit smoking in 2000., smoked 3/4 ppd, started smoking age 15. Past Drug Use History: None Reported Additional History: She has been since 2009 and this is her second marriage. She is retired. - Past Family History Father Family Medical History: Cancer Additional Family Medical History / Comment(s): Skin cancer and prostate cancer., heart valve disease. Medications and Allergies Home Medications Medication Instructions Recorded Confirmed Type Aspirin 81 mg PO DAILY 10/09/13 08/11/21 History Omeprazole [PriLOSEC] 20 mg PO AC-BRKFST 10/09/13 08/11/21 History Atorvastatin Calcium [Lipitor] 40 mg PO HS 04/17/19 08/11/21 History Cetirizine HCl 10 mg PO DAILY 04/17/19 08/11/21 History Multivit with Calcium,Iron,Min 1 each PO DAILY 04/17/19 08/11/21 History [Women's Multivitamin] hydroCHLOROthiazide 12.5 mg PO DAILY 04/17/19 08/11/21 History Ibuprofen 400 mg PO DIRECTED PRN 06/16/20 08/11/21 History Losartan Potassium 100 mg PO DAILY 06/16/20 08/11/21 History Fluticasone Nasal [place] [Flonase 1 spray EA NOSTRIL DAILY 07/01/20 08/11/21 History Nasal [place]] Allergies Allergy/AdvReac Type Severity Reaction Status Date / Time adhesive tape Allergy Rash/Hives Verified 08/11/21 09:17 Exam Vital Signs Temp Pulse Resp BP Pulse Ox 08/11/21 09:22 98.5 F 75 17 154/88 96 Intake and Output 08/10/21 08/11/21 08/11/21 22:59 06:59 14:59 Other: Weight 93.894 kg Height 5 feet 5 inches, weight 207 pounds, BMI 34.4. This is a well-developed well-nourished white female who is alert and oriented times 3 in no acute distress. HEENT: Within normal limits. NECK: Supple without mass or thyromegaly. CHEST AND LUNGS: Clear to auscultation. HEART: Regular rate and rhythm. BREASTS: Are without mass or discharge. AXILLARY EXAM: Negative for adenopathy. BACK: Negative for CVA tenderness. ABDOMEN: Soft, nontender, without palpable masses. PELVIC EXAM: Normal external genitalia with mild atrophy. Cervix and vagina appear normal with mild atrophy. There is no unusual discharge. There is no evidence of prolapse. The uterus is midposition, nongravid size and nontender. There are no palpable adnexal masses or tenderness. RECTAL EXAM: Rectovaginal exam is negative for mass or tenderness and is negative for occult blood. EXTREMITIES: Nontender. IMPRESSION: 1. 66-year-old menopausal female with normal gynecologic exam. 2. History of left ovarian cyst after the menopause which has been followed conservatively since 2013. Last pelvic ultrasound done on 08/01/2020, showed a 2.8 cm simple left ovarian cyst. PLAN: 1. Pap smears have been discontinued. 2. Self breast awareness was discussed with the patient. We have also discussed symptoms associated with inflammatory breast cancer. 3. Screening mammogram will be done today. 4. Continue yearly pelvic ultrasound to follow the left ovarian cyst. The order slip was given to the patient for this. 5. Osteoporosis prevention was discussed. Last bone density test on 07/01/2020 was normal. This will be repeated in approximately 5 years. 6. She has completed her: Clear to vaccination series and did receive one booster. 7. She was advised to return in one year for her annual well woman exam.
--- NOTE | 2021-08-12 07:52 | MM ---
Reason for Exam: Screening (asymptomatic). Last mammogram was performed 1 year(s) and 1 month(s) ago. Patient History: Menarche at age 12. First Full-Term at age 21. Postmenopausal. 09/07/1999, Benign Stereotactic Core Biopsy on the left side. Risk Values: [place]ree 5 year model risk: 1.8%. NCI Lifetime model risk: 6.1%. Prior Study Comparison: 04/17/2019 Bilateral Screening Mammogram, [facility]. 05/01/2019 Left Diagnostic Mammogram, [facility]. 07/01/2020 Bilateral Screening Mammogram, [facility]. Tissue Density: The breast tissue is almost entirely fat. Findings: Analyzed By CAD. There is no suspicious group of microcalcifications or new suspicious mass in either breast. Overall Assessment: Negative, BI-RAD 1 Management: Screening Mammogram of both breasts in 1 year. A clinical breast exam by your physician is recommended on an annual basis and results should be correlated with mammographic findings. Electronically signed and approved by: Moe Becker M.D. Radiologis
== END ==
LOC: WWCWWP 09:11
PROVIDERS: ATTEND Obstetrics & Gynecology
DX: Z12.31 Encounter for screening mammogram for malignant neoplasm of breast (principal); Z01.419 Encounter for gynecological examination (general) (routine) without abnormal findings; N83.202 Unspecified ovarian cyst, left side; Z78.0 Asymptomatic menopausal state; E78.5 Hyperlipidemia, unspecified; I10 Essential (primary) hypertension; K21.9 Gastro-esophageal reflux disease without esophagitis; Z87.891 Personal history of nicotine dependence; Z79.899 Other long term (current) drug therapy; Z91.048 Other nonmedicinal substance allergy status
CPT/HCPCS: 77063; 77067

== ENCOUNTER → 2021-08-14 | Outpatient (CLI) | payer MEDICARE ==
--- NOTE | 2021-08-14 15:21 | US ---
EXAMINATION TYPE: US pelvic complete DATE OF EXAM: 08/14/2021 COMPARISON: 08/01/20 CLINICAL HISTORY: N83.0 OVARIAN CYST LT. Lt ovarian cyst. TECHNIQUE: . Transabdominal sonographic images of the pelvis were acquired. Pt declined a transvagi nal exam Date of LMP: 2007 EXAM MEASUREMENTS: Uterus: 5.4 x 3.4 x 3.1 cm Endometrial Stripe: 0.3 cm Right Ovary: Not vis. Left Ovary: 3.6 x 3.1 x 3.0 cm 1. Uterus: Retroverted wnl 2. Endometrium: wnl 3. Right Ovary: Not vis. 4. Left Ovary: Cyst visualized and similar in appearance compared to prior. 5. Bilateral Adnexa: wnl 6. Posterior cul-de-sac: wnl IMPRESSION: Stable left ovarian cyst.
== END | disposition home or self-care (01) ==
LOC: RADUSWWP 14:53
PROVIDERS: ATTEND Obstetrics & Gynecology
DX: N83.202 Unspecified ovarian cyst, left side (principal)
CPT/HCPCS: 76856

== ENCOUNTER → 2021-09-24 | Outpatient (CLI) | payer MEDICARE ==
[2021-09-24 10:40] LABS: Basophils # (A) 0.05 X 10*3/uL (0.00-0.10); Basophils % (A) 0.8 %; Eosinophils # (A) 0.24 X 10*3/uL (0.04-0.35); Eosinophils % (A) 3.8 %; HGB 13.7 g/dL (12.0-15.0); Immature Grans, Automated 0.2 %; Lymphocytes # (A) 2.92 X 10*3/uL (0.90-5.00); Lymphocytes % (A) 46.8 %; MCH 31.9 pg (27.0-32.0); MCHC 33.4 g/dL (32.0-37.0); MCV 95.6 fL (80.0-97.0); Mean Platelet Volume 10.8 fL (9.5-12.2); Monocytes # (A) 0.49 X 10*3/uL (0.20-1.00); Monocytes % (A) 7.9 %; NRBC Per 100 WBC 0 /100 WBCS (0.0-0.0); Neutrophils # (A) 2.53 X 10*3/uL (1.80-7.70); Neutrophils % (A) 40.5 %; Platelet Count 284 X 10*3/uL (140-440); RBC 4.29 X 10*6/uL (4.10-5.20); RDW 12.6 % (11.5-14.5); WBC 6.24 X 10*3/uL (4.50-10.00)
[2021-09-24 10:52] LABS: ALT 42 U/L (8-44); AST 33 U/L (13-35); African American GFR (CKD) 76.7 (60.0-200.0); Albumin 4.5 g/dL (3.8-4.9); Albumin/Globulin Ratio 1.67 (1.60-3.17); Alkaline Phosphatase 108 U/L (41-126); BUN/Creat Ratio 11.67 Ratio (12.00-20.00); Blood Urea Nitrogen 10.5 mg/dL (9.0-27.0); Calcium 9.5 mg/dL (8.7-10.3); Carbon Dioxide 27.5 mmol/L (20.0-27.5); Chloride 105 mmol/L (96-109); Chol/HDL Ratio 2.95 Ratio; Globulin 2.7 g/dL (1.6-3.3); Glucose 102 mg/dL (70-110); LDL Cholesterol,Calculated 74.3 mg/dL (0.0-131.0); Non-African American GFR(CKD) 66.2 (60.0-200.0); Sodium 144 mmol/L (135-145); Total Protein 7.2 g/dL (6.2-8.2)
== END | disposition home or self-care (01) ==
LOC: LABWHC1 07:13
PROVIDERS: ATTEND Family Medicine
DX: Z00.00 Encounter for general adult medical examination without abnormal findings (principal); I10 Essential (primary) hypertension; E78.5 Hyperlipidemia, unspecified
CPT/HCPCS: 36415; 80053; 80061; 83036; 85025

== ENCOUNTER → 2022-09-07 | Outpatient (CLI) | payer MEDICARE ==
[2022-09-07 09:01] VITALS: BP 152/90; PULSE 78; RESP 16; TEMP 98
--- NOTE | 2022-09-07 09:40 | P.HPOB ---
History of Present Illness H&P Date: 09/07/22 Chief Complaint: The patient is here for her routine gynecologic exam and ma mmogram. This is a 67-year-old with an LMP of 2007. The patient is without gynecologic complaints. She has a history of a postmenopausal left ovarian cyst which has been followed by yearly ultrasounds since 2013. Her last ultrasound was done on 08/14/2021 and was stable. She denies pelvic pressure, discomfort or unusual bloating. Review of Systems The patient's weight has been stable over the last year. She denies respiratory, cardiac, or G.I. problems. Past Medical History Past Medical History: GERD/Reflux, Hyperlipidemia, Hypertension Additional Past Medical History / Comment(s): heart murmur. Seasonal allergies. hx of colon polyps. 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 Benign appearing left ovarian cyst since 2013. History of Any Multi-Drug Resistant Organisms: None Reported Past Surgical History: Back Surgery, Heart Catheterization, Orthopedic Surgery, Tubal Ligation Additional Past Surgical History / Comment(s): back surgery with fusion plate and screws in place, knee surgery, colon polyps with colonoscopy in 2013 and 2019., marker left breast., ruptured ovarian cyst, L4-S1 BACK SURGERY 2020 Past Anesthesia/Blood Transfusion Reactions: No Reported Reaction, Motion Sickness Past Psychological History: No Psychological Hx Reported Smoking Status: Former smoker Past Alcohol Use History: Occasional (4-5 per week.) Additional Past Alcohol Use History / Comment(s): Quit smoking in 2000., smoked 3/4 ppd, started smoking age 15. Past Drug Use History: None Reported Additional History: She has been since 2009 and this is her second marriage. She is retired. - Past Family History Father Family Medical History: Cancer Additional Family Medical History / Comment(s): Skin cancer and prostate cancer., heart valve disease. Medications and Allergies Home Medications Medication Instructions Recorded Confirmed Type Omeprazole [PriLOSEC] 20 mg PO AC-BRKFST 10/09/13 09/07/22 History Atorvastatin Calcium [Lipitor] 40 mg PO HS 04/17/19 09/07/22 History Cetirizine HCl 10 mg PO DAILY 04/17/19 09/07/22 History Multivit with Calcium,Iron,Min 1 each PO DAILY 04/17/19 09/07/22 History [Women's Multivitamin] hydroCHLOROthiazide 12.5 mg PO DAILY 04/17/19 09/07/22 History Ibuprofen 400 mg PO DIRECTED PRN 06/16/20 09/07/22 History Losartan Potassium 100 mg PO DAILY 06/16/20 09/07/22 History Fluticasone Nasal [place] [Flonase 1 spray EA NOSTRIL DAILY 07/01/20 09/07/22 History Nasal [place]] Cholecalciferol [Vitamin D3 (10 1 tab PO DAILY 09/07/22 09/07/22 History Mcg = 400 Iu)] Allergies Allergy/AdvReac Type Severity Reaction Status Date / Time adhesive tape Allergy Rash/Hives Verified 09/07/22 08:56 Exam Vital Signs Temp Pulse Resp BP Pulse Ox 09/07/22 08:57 98.0 F 78 16 152/90 95 Intake and Output 09/06/22 09/07/22 09/07/22 22:59 06:59 14:59 Other: Weight 93.894 kg Height 5 feet 5 inches, weight 207 pounds, BMI 34.4. This is a well-developed well-nourished white female who is alert and oriented times 3 in no acute distress. HEENT: Within normal limits. NECK: Supple without mass or thyromegaly. CHEST AND LUNGS: Clear to auscultation. HEART: Regular rate and rhythm. BREASTS: Are without mass or discharge. AXILLARY EXAM: Negative for adenopathy. BACK: Negative for CVA tenderness. ABDOMEN: Soft, nontender, without palpable masses. PELVIC EXAM: Normal external genitalia with mild atrophy. Cervix and vagina appear normal with mild atrophy. There is no unusual discharge. There is no evidence of prolapse. The uterus is midposition, nongravid size and nontender. There are no palpable adnexal masses or tenderness. RECTAL EXAM: Rectovaginal exam is negative for mass or tenderness and is negative for occult blood. EXTREMITIES: Nontender. IMPRESSION: 1. 67-year-old menopausal female with normal gynecologic exam. 2. History of left ovarian cyst after menopause which has been followed conservatively since 2013. Her last ultrasound on 08/14/2021 was stable with a cyst measuring approximately 2.8 cm. PLAN: 1. Pap smears have been discontinued. 2. Self breast awareness was discussed with the patient. We have also discussed symptoms associated with inflammatory breast cancer. 3. Screening mammogram was done today. 4. The order slip for a pelvic ultrasound was given to the patient. We will continue to do yearly pelvic ultrasounds because of her postmenopausal left ovar ana cyst. 5. Osteoporosis prevention was discussed. I have stressed the importance of adequate calcium, vitamin D and regular exercise. Recommended amounts of calcium and vitamin D were also discussed. We will plan on repeating her bone density test in approximately 2026 since her last one in 2020 was normal. 6. She may be due for a colonoscopy since she believes she was supposed to have one done 3 years after her last one. She will discuss this with her PCP. 7. She was advised to return in one year for her annual well woman exam.
--- NOTE | 2022-09-08 15:08 | MM ---
Reason for Exam: Screening (asymptomatic). Last mammogram was performed 1 year(s) and 1 month(s) ago. Patient History: Menarche at age 12. First Full-Term at age 21. Postmenopausal. 09/07/1999, Benign Stereotactic Core Biopsy on the left side. Risk Values: Aubree 5 year model risk: 1.8%. NCI Lifetime model risk: 5.9%. Prior Study Comparison: 05/01/2019 Left Diagnostic Mammogram, [facility]. 07/01/2020 Bilateral Screening Mammogram, [facility]. 08/11/2021 Bilateral MG 3D screening mammo w/cad, [facility]. Tissue Density: There are scattered fibroglandular densities. Findings: Analyzed By CAD. Pattern appears symmetrical and stable. No significant interval change is evident. 8 core markers within the left breast. No suspicious groups of microcalcifications, spiculated or lobular masses, architectural distortion or other secondary signs of malignancy are mammographically apparent. Overall Assessment: Benign, BI-RAD 2 Management: Screening Mammogram of both breasts in 1 year. A negative mammogram report should not preclude additional follow up of suspicious palpable abnormalities. Patient should continue monthly self breast exam. A clinical breast exam by your physician is recommended on an annual basis and results should be correlated with mammographic findings. Electronically signed and approved by: Ish Adkins D.O. Radiologis
== END | disposition home or self-care (01) ==
LOC: RADMAMWWP 08:38
PROVIDERS: ATTEND Obstetrics & Gynecology
DX: Z01.419 Encounter for gynecological examination (general) (routine) without abnormal findings (principal); Z12.31 Encounter for screening mammogram for malignant neoplasm of breast; E78.5 Hyperlipidemia, unspecified; I10 Essential (primary) hypertension; K21.9 Gastro-esophageal reflux disease without esophagitis; Z87.19 Personal history of other diseases of the digestive system; Z78.0 Asymptomatic menopausal state; Z87.891 Personal history of nicotine dependence
CPT/HCPCS: 77063; 77067

== ENCOUNTER → 2022-10-18 | Outpatient (CLI) | payer MEDICARE ==
[2022-10-18 15:43] LABS: Basophils # (A) 0.03 X 10*3/uL (0.00-0.10); Basophils % (A) 0.5 %; Eosinophils # (A) 0.21 X 10*3/uL (0.04-0.35); Eosinophils % (A) 3.7 %; HCT 41.4 % (37.2-46.3); HGB 13.6 d/dL (12.0-15.0); Lymphocytes # (A) 2.24 X 10*3/uL (0.90-5.00); Lymphocytes % (A) 39.9 %; MCH 32.1 pg (27.0-32.0); MCHC 32.9 d/dL (32.0-37.0); MCV 97.6 FL (80.0-97.0); Mean Platelet Volume 10.8 FL (9.5-12.2); Monocytes # (A) 0.48 X 10*3/uL (0.20-1.00); Monocytes % (A) 8.5 %; NRBC Per 100 WBC 0 X 10*3/uL (0.00-0.01); Neutrophils # (A) 2.64 X 10*3/uL (1.80-7.70); Platelet Count 304 X 10*3/uL (140-440); RBC 4.24 X 10*6/uL (4.10-5.20); RDW 12.4 % (11.5-14.5); WBC 5.62 X 10*3/uL (4.50-10.00)
[2022-10-18 15:48] LABS: ALT 36 U/L (8-44); AST 24 U/L (13-35); Albumin 4.7 d/dL (3.8-4.9); Albumin/Globulin Ratio 2.14 Ratio (1.60-3.17); Alkaline Phosphatase 104 U/L (41-126); BUN/Creat Ratio 10.78 Ratio (12.00-20.00); Blood Urea Nitrogen 9.7 mg/dL (9.0-27.0); Calcium 9.7 mg/dL (8.7-10.3); Carbon Dioxide 28.4 mmol/L (21.6-31.8); Chloride 104 mmol/L (96-109); Globulin 2.2 d/dL (1.6-3.3); Glucose 107 mg/dL (70-110); LDL Cholesterol,Calculated 80.7 mg/dL (0.0-131.0); Potassium 4.4 mmol/L (3.5-5.5); Sodium 142 mmol/L (135-145); Total Bilirubin 0.4 mg/dL (0.3-1.2); Total Protein 6.9 d/dL (6.2-8.2)
== END | disposition home or self-care (01) ==
LOC: LABWHC1 08:47
PROVIDERS: ATTEND Family Medicine
DX: Z00.00 Encounter for general adult medical examination without abnormal findings (principal); I10 Essential (primary) hypertension; E78.5 Hyperlipidemia, unspecified; R73.9 Hyperglycemia, unspecified
CPT/HCPCS: 36415; 80053; 80061; 83036; 85025

== ENCOUNTER → 2023-04-12 | Outpatient (CLI) | payer MEDICARE ==
[2023-04-12 12:55] LABS: Basophils # (A) 0.05 X 10*3/uL (0.00-0.10); Basophils % (A) 0.8 %; Eosinophils # (A) 0.34 X 10*3/uL (0.04-0.35); Eosinophils % (A) 5.8 %; HCT 41.8 % (37.2-46.3); HGB 13.9 g/dL (12.0-15.0); Lymphocytes # (A) 2.89 X 10*3/uL (0.90-5.00); MCH 31.4 pg (27.0-32.0); MCHC 33.3 g/dL (32.0-37.0); MCV 94.4 FL (80.0-97.0); Mean Platelet Volume 10.3 FL (9.5-12.2); Monocytes # (A) 0.45 X 10*3/uL (0.20-1.00); Monocytes % (A) 7.6 %; NRBC Per 100 WBC 0 X 10*3/uL (0.00-0.01); Neutrophils # (A) 2.16 X 10*3/uL (1.80-7.70); Neutrophils % (A) 36.6 %; Platelet Count 299 X 10*3/uL (140-440); RBC 4.43 X 10*6/uL (4.10-5.20); RDW 12.2 % (11.5-14.5)
[2023-04-12 13:14] LABS: Amylase 33 U/L (23-121); Chol/HDL Ratio 3.08 Ratio; LDL Cholesterol,Calculated 95.1 mg/dL (0.0-131.0); Lipase 37 U/L (14-63)
[2023-04-12 13:15] LABS: ALT 41 U/L (8-44); AST 26 U/L (13-35); Albumin 4.5 g/dL (3.8-4.9); Albumin/Globulin Ratio 1.88 Ratio (1.60-3.17); Alkaline Phosphatase 104 U/L (41-126); BUN/Creat Ratio 11.33 Ratio (12.00-20.00); Blood Urea Nitrogen 10.2 mg/dL (9.0-27.0); Calcium 9.8 mg/dL (8.7-10.3); Carbon Dioxide 26.5 mmol/L (21.6-31.8); Chloride 104 mmol/L (96-109); Globulin 2.4 g/dL (1.6-3.3); Glucose 115 mg/dL (70-110); Potassium 4.8 mmol/L (3.5-5.5); Sodium 144 mmol/L (135-145); Total Bilirubin 0.4 mg/dL (0.3-1.2); Total Protein 6.9 g/dL (6.2-8.2)
== END | disposition home or self-care (01) ==
LOC: LABWHC1 07:18
PROVIDERS: ATTEND Family Medicine
DX: I10 Essential (primary) hypertension (principal); E78.5 Hyperlipidemia, unspecified; K81.9 Cholecystitis, unspecified
CPT/HCPCS: 36415; 80053; 80061; 82150; 83690; 85025

== ENCOUNTER 2023-07-29 09:45 | Day surgery (SDC) | payer MEDICARE ==
[~2023-07-29 09:45] MED LIST changes: +MIDAZOLAM 2 MG/2 ML VIAL IV PRN
[2023-07-29] MEDS: LACTATED RINGERS 1,000 ML IV SCH (10:21)
[2023-07-29 10:34] VITALS: TEMP 97.8
[2023-07-29] MEDS ORDERED: PROPOFOL 10 MG/ML 20 ML VIAL IV ONE (11:24)
--- NOTE | 2023-07-29 11:49 | P.PCN ---
Date of Procedure: 07/29/23 Procedure(s) Performed: BRIEF HISTORY: Patient is a 68-year-old pleasant white female scheduled for an elective colonoscopy as a part of screening for colon cancer/history of colon polyps PROCEDURE PERFORMED: Colonoscopy with snare polypectomy, biopsy and other plasma coagulation. PREOPERATIVE DIAGNOSIS: Screening for colon cancer/history of colon polyps. IV sedation per Anesthesia. PROCEDURE: After informed consent was obtained, the patient, was brought into the endoscopy unit. IV sedation was administered by Anesthesia under continuous monitoring. Digital rectal examination was normal. Initially the Olympus CF-160 flexible video colonoscope was then inserted in the rectum, gradually advanced into the cecum without any difficulty. Careful examination was performed as the scope was gradually being withdrawn. Ileocecal valve and the appendiceal orifice were visualized and appeared normal. Prep was excellent. Mucosa of the cecum, ascending colon, appeared normal. The hepatic flexure at the site of previous polypectomy there was a 2 cm flat residual polyp identified and part of this was removed by snare polypectomy followed by multiple biopsies. Following this as a possible coagulation was performed. In the descending colon there was a 3 mm polyp that was removed by cold biopsy. Rest of the transverse colon, descending colon, sigmoid colon, and rectum appeared normal. Scattered sigmoid diverticulosis. Retroflexion was performed in the rectum and no lesions were seen. The patient tolerated the procedure well. IMPRESSION: 2 cm flat residual polyp in the hepatic flexure s/p polypectomy followed by biopsy and other plasma coagulation 3 mm descending colon polyp status post cold biopsy Scattered sigmoid diverticulosis RECOMMENDATIONS: Findings of this examination were discussed with the patient as well as her family. He was advised to follow-up with the biopsy results and have repeat colonoscopy in 3 years
[2023-07-29 11:55] VITALS: PULSE 74
[2023-07-29 12:23] VITALS: BP 130/90; RESP 16
== END 2023-07-29 12:35 | disposition home or self-care (01) ==
LOC: ORWHC2ENDO 09:45
PROVIDERS: ATTEND Internal Medicine Gastroenterology
DX: Z12.11 Encounter for screening for malignant neoplasm of colon (principal); D12.3 Benign neoplasm of transverse colon; D12.4 Benign neoplasm of descending colon; K57.30 Diverticulosis of large intestine without perforation or abscess without bleeding; I10 Essential (primary) hypertension; E78.5 Hyperlipidemia, unspecified; J45.909 Unspecified asthma, uncomplicated; E66.9 Obesity, unspecified; K21.9 Gastro-esophageal reflux disease without esophagitis; Z87.891 Personal history of nicotine dependence; Z79.899 Other long term (current) drug therapy; Z98.890 Other specified postprocedural states; Z86.010 Personal history of colon polyps; Z68.33 Body mass index [BMI] 33.0-33.9, adult
CPT/HCPCS: 88305; 45380; 45385; J2704; 45388

== ENCOUNTER → 2024-01-10 | Outpatient (CLI) | payer MEDICARE ==
[2024-01-10 11:47] LABS: Chol/HDL Ratio 3.07 Ratio; LDL Cholesterol,Calculated 87.2 mg/dL (0.0-131.0)
[2024-01-10 11:48] LABS: ALT 48 U/L (8-44); AST 32 U/L (13-35); Albumin 4.6 g/dL (3.8-4.9); Albumin/Globulin Ratio 1.84 Ratio (1.60-3.17); Alkaline Phosphatase 114 U/L (41-126); Blood Urea Nitrogen 11.7 mg/dL (9.0-27.0); Calcium 9.7 mg/dL (8.7-10.3); Chloride 102 mmol/L (96-109); Globulin 2.5 g/dL (1.6-3.3); Glucose 113 mg/dL (70-110); Potassium 4.2 mmol/L (3.5-5.5); Sodium 142 mmol/L (135-145); Total Bilirubin 0.6 mg/dL (0.3-1.2); Total Protein 7.1 g/dL (6.2-8.2)
--- NOTE | 2024-01-11 12:51 | MM ---
Reason for Exam: Screening (asymptomatic). Last mammogram was performed 1 year(s) and 4 month(s) ago. Patient History: Menarche at age 12. First Full-Term at age 21. Postmenopausal. 09/07/1999, Benign Stereotactic Core Biopsy on the left side. Risk Values: Aubree 5 year model risk: 1.8%. NCI Lifetime model risk: 5.6%. Prior Study Comparison: 07/01/2020 Bilateral Screening Mammogram, [facility]. 08/11/2021 Bilateral MG 3D screening mammo w/cad, [facility]. 09/07/2022 Bilateral MG 3D screening mammo w/cad, [facility]. Tissue Density: There are scattered areas of fibroglandular density. Findings: Analyzed By CAD. There is no suspicious group of microcalcifications or new suspicious mass in either breast. Overall Assessment: Negative, BI-RAD 1 Management: Screening Mammogram of both breasts in 1 year. . Patient should continue monthly self-breast exams. A clinical breast exam by your physician is recommended on an annual basis. This exam should not preclude additional follow-up of suspicious palpable abnormalities. Note on Aubree scores and lifetime risk: 1. A Aubree score greater than 3% is considered moderate risk. If this is the case, consider specialist referral to assess eligibility for a risk reducing agent. 2. If overall lifetime risk for the development of breast cancer is 20% or higher, the patient may qualify for future screening with alternating mammogram and breast MRI. [facility], , 01/11/2024 12:49 PM. Electronically signed and approved by: Moe Becker M.D. Radiologis
== END | disposition home or self-care (01) ==
LOC: RADMAMWWP 07:02
PROVIDERS: ATTEND Family Medicine
DX: Z12.31 Encounter for screening mammogram for malignant neoplasm of breast (principal); Z00.00 Encounter for general adult medical examination without abnormal findings; Z78.0 Asymptomatic menopausal state; R92.323 Mammographic fibroglandular density, bilateral breasts; I10 Essential (primary) hypertension; E78.5 Hyperlipidemia, unspecified
CPT/HCPCS: 77063; 77067; 80053; 80061

== ENCOUNTER → 2024-08-22 | Outpatient (CLI) | payer MEDICARE ==
[2024-08-22 11:21] VITALS: BP 136/87; PULSE 61; RESP 16; TEMP 98.3
--- NOTE | 2024-08-22 12:56 | P.PN ---
Progress Note - Text Progress Note Date: 08/22/24 Chief Complaint: Left breast soreness and small lump for about 3 weeks. HPI: This is a 69-year-old G2, P2 with an LMP of 2007. The patient states she has noticed a sore area in the left breast for about 3 weeks. She states this is near where a marker was left in place several years ago when she had a breast biopsy. She has also noticed a small lump that is pea-sized in the general vicinity. The pea-sized lump is at about the 9 o'clock position near the border of the left areola. She has let me know about a few events during the past 2 or 3 months. She had a UTI about 2 to 3 months ago and was treated with antibiotics. About 1 to 2 months ago she was treated for a bronchial infection with antibiotics and steroids. About 3 weeks ago, she fell backwards when she was trying to help with a trailer hitch and hit her left shoulder on a garage door. She does not think she had direct trauma to the left breast, but her breast symptoms did develop around the same time. She does drink a fair amount of caffeinated beverages. She did have a benign mammogram on 01/10/2024. ROS: She has lost about 7 pounds during the past year and this has been intentional. She has been exercising more. She denies fever, respiratory problems, cardiac problems, or GI problems. She has noticed that when she bends over she can get slightly lightheaded. PE: Blood pressure: 136/87, Height: 5 feet 5 inches, Weight: 200 pounds, Temperature: 98.3, Pulse: 61. Pulse oximeter 92%. This is a well developed, well nourished, white female who is alert and orientedx3, in no acute distress. Breasts: There is a palpable small lump measuring approximately 5 mm at the 9 o'clock position of the outer areolar region. This is nontender. The sore area that she complains about is just medial to this small lump. That area is mildly tender. There are no other palpable breast masses. There is no nipple discharge. Axillary exam is unremarkable bilaterally. Impression: 1. 69-year-old menopausal female with recent palpable small lump in the left breast noticed by the patient and is associated with an area of soreness. On exam small lump measures approximately 5 mm. Differential diagnosis will include benign fibrous tissue such as a milk gland which is more prominent after weight loss, mild breast trauma after her fall 3 weeks ago, breast cyst, and less likely, breast neoplasm. 2. History of persistent left ovarian cyst in the menopausal female. Plan: 1. Diagnostic left mammogram and ultrasound will be performed today. If the findings are benign she will return in approximately 5 months for her preventative well woman examination and bilateral mammogram. 2. I recommended that she try to decrease caffeine intake to see if this helps with the soreness. 3. She did not do the pelvic ultrasound last year to check on the postmenopausal left ovarian cyst. The order slip was given to the patient for this. Time spent with the patient: 25 minutes
== END ==
LOC: WWCWWP 10:58
PROVIDERS: ATTEND Obstetrics & Gynecology
DX: N63.25 Unspecified lump in the left breast, overlapping quadrants (principal); N64.4 Mastodynia; N83.202 Unspecified ovarian cyst, left side; Z78.0 Asymptomatic menopausal state; Z91.048 Other nonmedicinal substance allergy status; Z87.891 Personal history of nicotine dependence

== ENCOUNTER → 2024-08-22 | Outpatient (CLI) | payer MEDICARE ==
--- NOTE | 2024-08-22 13:59 | USB ---
Reason for Exam: Clinical finding. Patient History: Menarche at age 12. First Full-Term at age 21. Postmenopausal. 09/07/1999, Benign Stereotactic Core Biopsy on the left side. Risk Values: Aubree 5 year model risk: 1.8%. NCI Lifetime model risk: 5.3%. Technique: Method: Targeted. Prior Study Comparison: 08/11/2021 Bilateral MG 3D screening mammo w/cad, [facility]. 09/07/2022 Bilateral MG 3D screening mammo w/cad, [facility]. 01/10/2024 Bilateral MG 3D screening mammo w/cad, [facility]. Findings: The area of palpable concern of the left breast, the axilla of the left breast and the retroareolar of the left breast were scanned. Targeted ultrasound left breast at the alveolar/subareolar palpable site. Additional scanning of the axilla. There is no solid or cystic lesion. No duct ectasia or axillary adenopathy. Overall Assessment: Benign, BI-RAD 2 Management: Screening Mammogram of both breasts in 4 months. In time for the patient's annual exam. Further clinical management of any suspicious palpable area. If any enlarging lump is detected, the patient can be rescanned. Results were given to the patient verbally at the time of exam. [facility], , 08/22/2024 1:56 PM. Electronically signed and approved by: Margaret Batista M.D. Radiologist
--- NOTE | 2024-08-22 14:00 | MM ---
Reason for Exam: Clinical finding. Last screening mammogram was performed 8 month(s) ago. Patient History: Menarche at age 12. First Full-Term at age 21. Postmenopausal. 09/07/1999, Benign Stereotactic Core Biopsy on the left side. Risk Values: Aubree 5 year model risk: 1.8%. NCI Lifetime model risk: 5.3%. Prior Study Comparison: 08/11/2021 Bilateral MG 3D screening mammo w/cad, [facility]. 09/07/2022 Bilateral MG 3D screening mammo w/cad, [facility]. 01/10/2024 Bilateral MG 3D screening mammo w/cad, [facility]. Tissue Density: Left: There are scattered areas of fibroglandular density. Findings: Analyzed By CAD. Unchanged 12-1 o'clock focal asymmetry anterior to middle depth left breast. Microclip left breast from prior biopsy. No significant change is seen. Overall Assessment: Incomplete: need additional imaging evaluation, BI-RAD 0 Management: Diagnostic Breast Ultrasound of the left breast. Targeted to the patient's palpable. [facility], , 08/22/2024 1:57 PM. Electronically signed and approved by: Margaret Batista M.D. Radiologist
== END | disposition home or self-care (01) ==
LOC: RADMAMWWP 12:26
PROVIDERS: ATTEND Obstetrics & Gynecology
DX: R92.322 Mammographic fibroglandular density, left breast (principal); Z78.0 Asymptomatic menopausal state
CPT/HCPCS: 77061; 77065